=== PATIENT | female | born 1960 | race Caucasian/White ===

== ENCOUNTER 2019-02-12 12:00 | Emergency (ER) | payer BC ==
[~2019-02-12] VITALS: Ht 165.1 cm; Wt 60.0 kg
[~2019-02-12 12:00] MED LIST: ACYCLOVIR800 MG PO; BACTRIM DS1 TAB PO; ZOVIRAX51 EX
[2019-02-12] MEDS ORDERED: ONDANSETRON4 MG PO (13:31)
[2019-02-12] MEDS ORDERED: TAM75CAP PO (13:31)
[2019-02-12 13:51] VITALS: BP 117/68
== END 2019-02-12 13:45 | disposition home or self-care (01) | DRG 195 ==
LOC: ED 12:00
DX: J10.1 Influenza due to other identified influenza virus with other respiratory manifestations (principal)